=== PATIENT | male | born 1985 ===

== ENCOUNTER → 2019-06-07 | Day surgery (SDC) | payer BC ==
[~2019-06-07] VITALS: Ht 190.5 cm; Wt 83.9 kg
[2019-06-07] VITALS (17 sets, daily range): BP systolic 103–132; BP diastolic 55–83
[~2019-06-07] MED LIST: LR 1000ml 1,000 ML IVLG SCH; Midazolam 2mg/2ml Inj ONE; NKM; fentaNYL 100 mcg/2 mL IV ONE
--- NOTE | 2019-06-07 10:02 | Pre-Procedure Note/Attestation ---
Pre-Procedure Note/Attestation Complete Prior to Procedure Planned Procedure: not applicable Procedure Narrative: colonoscopy Indications for Procedure Pre-Operative Diagnosis: screening Attestation I attest that I discussed the nature of the procedure; its benefits; risks and complications; and alternatives (and the risks and benefits of such alternatives ), prior to the procedure, with the patient (or the patient's legal sales development representative). I attest that, if there was a reasonable possibility of needing a blood transfusion, the patient (or the patient's legal sales development representative) was given the [facility] standardized written summary, pursuant to the Saur[place] Blood Safety Act ([place] Health and Safety Code # 1645, as amended). I attest that I re-evaluated the patient just prior to the surgery and that there has been no change in the patient's H&P, except as documented below: Nando Bermudez MD Jun 07, 2019 10:02
--- NOTE | 2019-06-07 10:03 | Short Stay Surgery H&P ---
History of Present Illness History of Present Illness Chief Complaint screening HPI Victoriano Connors is a 34 year old male who was admitted on for Colon Polyps Patient History Allergies: Coded Allergies: No Known Allergies (Unverified , 06/06/19) Medication History Scheduled No Known Medications* (NKM - No Known Medications*), 0 ., (Reported) Review of Systems Cardiovascular: Reports: no symptoms Respiratory: Reports: no symptoms Skeletal: Reports: no symptoms Gastrointestinal: Reports: no symptoms Genitourinary: Reports: no symptoms Neurologic: Reports: no symptoms Endocrine: Reports: no symptoms Hematologic: Reports: no symptoms Physical Exam Skin: normal HENT: normal Heart: normal Lungs: normal Abdomen: normal Extremities: normal Plan Plan of Care colonoscopy Attestation Are the patient's medical conditions optimized for surgery? Attestation Response: yes Nando Bermudez MD Jun 07, 2019 10:03
--- NOTE | 2019-06-07 10:53 | Moderate Sedation - Procedural ---
Moderate Sedation HPI Home Medication Reported Medications No Known Medications* (NKM - No Known Medications*) ., 0 ., 0 Refills 06/07/19 Patient History Allergies: Coded Allergies: No Known Allergies (Unverified , 06/06/19) Pre-Procedural Mod Sedation Date: Jun 07, 2019 Pre-Assessment Time: 10:52 Pre-Sedation Assessment: Elective Airway Assessment (Malampati): I Heart: normal Lungs: normal Abdomen: normal Extremities: normal Evaluation Hx of untoward rxns to mod sed: Yes Procedures/Plans: Colonoscopy Plan for Moderate Sedation: Midazolam, Fentanyl ASA Score: I Informed Consent The nature of the procedure/sedation; its benefits; risks and complications; and alternatives (and the risks and benefits of such alternatives) were discussed with the patient (or their legal food service representative), prior to the procedure. All questions were answered to the patient's (or their legal food service representative's) satisfaction and the patient (or their legal food service representative) gave informed consent to the procedure. I attest that I re-evaluated the patient just prior to the surgery and that there has been no change in the patient's H&P, except as documented below: Post Procedure Assessment Post Procedure TIme: 12:01 Communication: No Apparent Limitation Mental Status: Awake Respiration: Unlabored Skin Condition: WNL Adomen: WNL Nausea: NO Vomiting: NO Nando Bermudez MD Jun 07, 2019 10:53
--- NOTE | 2019-06-07 11:18 | Pre-Procedure Note/Attestation ---
Pre-Procedure Note/Attestation Complete Prior to Procedure Planned Procedure: not applicable Procedure Narrative: egd Indications for Procedure Pre-Operative Diagnosis: GERD Attestation I attest that I discussed the nature of the procedure; its benefits; risks and complications; and alternatives (and the risks and benefits of such alternatives ), prior to the procedure, with the patient (or the patient's legal communications representative). I attest that, if there was a reasonable possibility of needing a blood transfusion, the patient (or the patient's legal communications representative) was given the [facility] standardized written summary, pursuant to the Saurabh [place] Blood Safety Act ([place] Health and Safety Code # 1645, as amended). I attest that I re-evaluated the patient just prior to the surgery and that there has been no change in the patient's H&P, except as documented below: Nando Bermudez MD Jun 07, 2019 11:18
--- NOTE | 2019-06-07 12:00 | Endoscopy Procedure Note ---
Endoscopy Procedure Note General Indication for Procedure: egd and colonoscopy Procedures Performed: EGD, colonoscopy Operative Findings/Diagnosis: gastritis, hemorrhoids Specimen: yes Pt Tolerated Procedure Well: Yes Estimated Blood Loss: none Anesthesia Anesthesiologist: none Anesthesia: moderate sedation Medications Medication Given: midazolam, flumazenil Inserted Devices Implant(s) used?: No Quality Quality of Bowel Preparation: Good Did scope reach the cecum?: Yes Was there any complications?: No GI Core Measures 50 yrs or older w/o bx or poly: Not Applicable 10yrs. F/U recommended: Not Applicable Nando Bermudez MD Jun 07, 2019 12:00
--- NOTE | 2019-06-07 17:45 | Procedure Note ---
DATE OF PROCEDURE: 06/07/2019 SURGEON: Nando Bermudez M.D. PROCEDURE: Upper endoscopy with biopsy and colonoscopy. ANESTHESIA: 6 mg of Versed and 125 mcg of fentanyl IV. INDICATIONS: The patient with history of prior colonic polyps, chronic acid reflux, and chronic GERD. REASON FOR PROCEDURE: The procedure, risks, benefits, and possible consequences, including hemorrhage, aspiration, perforation and infection, and alternative treatments, were explained to the patient/legal guardian by Dr. Nando Bermudez and the patient/legal guardian understood and accepted these risks. PROCEDURE IN DETAIL: After informed consent was obtained and the patient was adequately sedated, Olympus upper endoscope was advanced from mouth into the second portion of the duodenum and retroflexion was performed in the stomach. The patient has diffuse gastritis. Random biopsy from antrum was obtained to rule out H. pylori infection. Otherwise, the rest of upper endoscopic examination was within normal limits. Random biopsy from antrum was obtained, then the scope was removed. Then, the patient was turned over for colonoscopy. First rectal examination showed positive for internal hemorrhoids. Then, the scope was advanced from the rectum into the cecum documented by appendix orifice, ileocecal valve, and right upper quadrant palpation. Quality of prep was very good. The patient had normal colonoscopy examination. No obvious mass, polyp, or any pathology was seen. Retroflexion of rectum showed evidence of internal hemorrhoids. SUMMARY OF FINDINGS: 1. Gastritis, status post biopsy. 2. Internal hemorrhoids. RECOMMENDATION: Follow biopsy results and treat accordingly. Nando Bermudez M.D. DR: MARGO JOB#: [id number] CC:
== END | disposition home or self-care (01) ==
LOC: GAS 09:17
DX: Z86.010 Personal history of colon polyps (principal); K29.70 Gastritis, unspecified, without bleeding; K64.8 Other hemorrhoids; I10 Essential (primary) hypertension; N40.0 Benign prostatic hyperplasia without lower urinary tract symptoms
CPT/HCPCS: 43239; 45378; J2250; J3010